=== PATIENT | female | born 1960 | race Caucasian/White ===

== ENCOUNTER 2018-05-28 03:39 | Emergency (ER) | payer OTHER ==
[~2018-05-28] VITALS: Ht 160 cm; Wt 68.0 kg
[2018-05-28 04:35] VITALS: BP 143/78
== END 2018-05-28 04:40 | disposition home or self-care (01) ==
LOC: ED 04:30
DX: K02.9 Dental caries, unspecified (principal)
CPT/HCPCS: 99283

== ENCOUNTER 2019-03-22 20:29 | Emergency (ER) | payer OTHER ==
[~2019-03-22] VITALS: Ht 160 cm; Wt 68.3 kg
[2019-03-22 20:30] VITALS: BP 160/96
--- NOTE | 2019-03-22 20:51 | NUR ---
PT PRESENTED WITH C/O RASH TO ABD AND BACK X2 WKS, NOTED BLISTERS. MONITORS APPLIED, SIDERAILS UP X2, CALL LIGHT WITHIN REACH
== END 2019-03-22 21:02 | disposition home or self-care (01) ==
LOC: ED 20:56
DX: B02.9 Zoster without complications (principal); F17.210 Nicotine dependence, cigarettes, uncomplicated
CPT/HCPCS: 99283